=== PATIENT | male | born 1965 | race African-American/Black ===

== ENCOUNTER 2025-05-09 10:00 | Inpatient (IN) | payer MEDICAID ==
[~2025-05-09] VITALS: Ht 182.9 cm; Wt 90.7 kg
[2025-05-09 10:04] VITALS: O2SAT 100
[2025-05-09] MEDS: ONDANSETRON HCL 4MG/2ML INJ IV ONE ×2 (10:41→17:21)
[2025-05-09] MEDS: FAMOTIDINE 20MG/2ML VIAL IV ONE (10:41)
[2025-05-09 10:42] LABS: BASOPHILS % 0.6 % (0.0-2.0); EOSINOPHILS % 4.6 % (0.0-5.0); HEMATOCRIT. 37.3 % (42.0-52.0); HEMOGLOBIN. 12.7 g/dL (14.0-18.0); LYMPHOCYTES % 16.5 % (20.0-50.0); MEAN PLATELET VOLUME 8.6 fl (7.4-10.4); MONOCYTES % 7.6 % (2.0-8.0); NEUTROPHILS % 70.7 % (40.0-76.0); PLATELET 260 x1000/uL (130-400); RED BLOOD CELL COUNT 4.18 mill/uL (4.7-6.1); RED CELL DISTRIBUTION WIDTH 16.1 % (11.6-14.6)
[2025-05-09 11:02] LABS: CREATININE 1.1 mg/dL (0.6-1.3); TROPONIN I HIGH SENSITIVITY 18 ng/L (3.0-53); UREA NITROGEN BLOOD 19 mg/dL (9-23)
[2025-05-09 11:03] LABS: ASPARTATE AMINOTRANSFERASE 107 IU/L (<34)
[2025-05-09 11:04] LABS: BILIRUBIN DIRECT 0.2 mg/dL (<=3.0); BILIRUBIN TOTAL 0.4 mg/dL (0.1-1.0); PROTEIN TOTAL 7.0 g/dL (6.0-8.3)
[2025-05-09] MEDS: LOSARTAN 50 MG TABLET PO ONE (15:50)
[2025-05-09 16:26] LABS: CLARITY URINE CLEAR (CLEAR); COLOR URINE YELLOW (YELLOW); GLUCOSE URINE NEGATIVE (NEGATIVE); KETONES URINE 1+ (NEGATIVE); LEUKOCYTE ESTERASE URINE NEGATIVE (NEGATIVE); NITRITE URINE NEGATIVE (NEGATIVE); OCCULT BLOOD URINE NEGATIVE (NEGATIVE); PH URINE 6.5 (4.5-8.0); PROTEIN URINE 1+ (NEGATIVE); SPECIFIC GRAVITY URINE 1.020 (1.005-1.030); UROBILINOGEN URINE 2.0 E.U./dL (0.2-1.0)
[2025-05-09 16:36] LABS: *AMPHETAMINES SCREEN URINE NEGATIVE (NEGATIVE); *BARBITURATES SCREEN URINE NEGATIVE (NEGATIVE); *BENZODIAZEPINES SCREEN URINE NEGATIVE (NEGATIVE); *COCAINE SCREEN URINE PRESUMPTIVE POSITIVE (NEGATIVE); CANNABINOID URINE SCREEN NEGATIVE (NEGATIVE); ECSTASY MDMA SCREEN URINE NEGATIVE (NEGATIVE); METHADONE URINE SCREEN NEGATIVE (NEGATIVE); OPIATES URINE SCREEN NEGATIVE (NEGATIVE); PHENCYCLIDINE URINE SCREEN NEGATIVE (NEGATIVE)
[2025-05-09 16:46] LABS: BACTERIA URINE NONE SEEN; RBC URINE 0-2 /hpf (0-2); SQUAMOUS EPITHELIAL CELL URINE NONE SEEN /lpf (RARE/1+); WBC URINE 0-2 /hpf (0-2)
[2025-05-09 16:47] LABS: MUCUS URINE TRACE /lpf (NONE/TRACE)
[2025-05-09] MEDS: KETOROLAC 30MG/ML VIAL IV ONE (17:21)
[2025-05-09] MEDS: HYDRALAZINE 20MG/ML VIAL IV ONE (18:20)
[2025-05-09] MEDS ORDERED: IOHEXOL-300 100 ML BOTTLE ONE (20:14)
[2025-05-09] MEDS ORDERED: DEXTROSE 50% WATER 50ML SYRINGE IV PRN (20:15)
[2025-05-09] MEDS: PANTOPRAZOLE SODIUM 40 MG/VIAL IV SCH (20:30)
[2025-05-09] MEDS ORDERED: LABETALOL 5MG/ML 4ML INJ IV SCH (20:30)
[2025-05-09] MEDS: METOCLOPRAMIDE HCL 10MG/2ML VIAL IV ONE (20:59)
[2025-05-09] MEDS: INSULIN LISPRO 100 UNITS/ML SUBCUT SCH (21:00)
[2025-05-09] MEDS: ENOXAPARIN 40MG/0.4ML SYR SUBCUT SCH (21:00)
[2025-05-09] MEDS ORDERED: CHLORDIAZEPOXIDE 25MG CAPSULE PO PRN (21:00)
[2025-05-09] MEDS: BLOOD SUGAR DIAGNOSTIC STRIP TEST SCH (21:00)
[2025-05-09] MEDS ORDERED: DEXT 5%/0.9% NACL 500 ML IV ONE (21:00)
[2025-05-09 23:30] VITALS: BP 175/116; PULSE 89; RESP 20; TEMP 36.5292
[2025-05-09 23:50] VITALS: BP 147/90; PULSE 89; RESP 20; TEMP 36.5; O2SAT 100
[2025-05-10 01:48] LABS: TROPONIN I HIGH SENSITIVITY 14 ng/L (3.0-53)
[2025-05-10 01:49] LABS: ASPARTATE AMINOTRANSFERASE 66 IU/L (<34)
[2025-05-10 04:00] VITALS: BP 153/96; PULSE 78; RESP 20; TEMP 36.7; O2SAT 98
[2025-05-10 07:26] LABS: CREATININE 1.0 mg/dL (0.6-1.3); UREA NITROGEN BLOOD 13 mg/dL (9-23)
[2025-05-10 07:41] LABS: BASOPHILS % 0.4 % (0.0-2.0); EOSINOPHILS % 3.9 % (0.0-5.0); HEMATOCRIT. 36.2 % (42.0-52.0); HEMOGLOBIN. 12.2 g/dL (14.0-18.0); LYMPHOCYTES % 23.9 % (20.0-50.0); MEAN PLATELET VOLUME 9.5 fl (7.4-10.4); MONOCYTES % 7.9 % (2.0-8.0); NEUTROPHILS % 63.9 % (40.0-76.0); PLATELET 260 x1000/uL (130-400); RED BLOOD CELL COUNT 4.05 mill/uL (4.7-6.1); RED CELL DISTRIBUTION WIDTH 16.1 % (11.6-14.6)
[2025-05-10] MEDS: MULTIVITAMINS,THER W-MINERALS TABLET PO SCH (09:00)
[2025-05-10] MEDS ORDERED: THIAMINE HCL 100 MG/1 ML 2ML VIAL IM SCH (09:00)
[2025-05-10] MEDS ORDERED: CLONIDINE 0.1MG TABLET PO PRN (09:00)
[2025-05-10] MEDS: FOLIC ACID 1MG TABLET PO SCH (09:00)
[2025-05-10] MEDS: HYDROCORTISONE 2.5% RECTAL CREAM 28GM PR SCH (09:43)
[2025-05-10 12:00] VITALS: BP 127/74; PULSE 57; RESP 17; TEMP 37; O2SAT 99
[2025-05-10] MEDS: FOLIC ACID 1 MG, THIAMINE HCL 100 MG, MVI, ADULT NO.1 10 ML in DEXTROSE 5% WATER 1,000 ML IV ONE (14:27)
[2025-05-10] MEDS: LORAZEPAM 2MG/ML UD SYRINGE IV PRN (14:47)
[2025-05-10 16:00] VITALS: BP 126/76; PULSE 79; RESP 18; TEMP 35.9; O2SAT 98
[2025-05-10] MEDS ORDERED: VARE1TAB21 PO (16:28)
[2025-05-10] MEDS ORDERED: PROT40 PO (16:59)
[2025-05-10] MEDS ORDERED: LISI2.5T47 PO (16:59)
[2025-05-10] MEDS ORDERED: OLAN-37 PO (16:59)
[2025-05-10] MEDS ORDERED: ONDA4TAB50 PO (16:59)
[2025-05-10] MEDS ORDERED: BENZ1TAB79 MT (16:59)
[2025-05-10] MEDS ORDERED: DIPH50CA42 MT (16:59)
[2025-05-10] MEDS ORDERED: SENN8.8S8 PO (16:59)
[2025-05-10] MEDS ORDERED: ATOR-2 PO (16:59)
[2025-05-10] MEDS ORDERED: CHOL400D7 PO (16:59)
[2025-05-10] MEDS ORDERED: NAPR-1176 PO (16:59)
[2025-05-10] MEDS ORDERED: OMEP40CA20 PO (16:59)
[2025-05-10] MEDS ORDERED: POLY250017 MT (16:59)
[2025-05-10] MEDS ORDERED: TAMS-54 PO (16:59)
[2025-05-10] MEDS ORDERED: TERB250T88 PO (16:59)
[2025-05-10] MEDS ORDERED: PROP80CA59 PO (16:59)
[2025-05-10] MEDS ORDERED: DICL100G58 TP (16:59)
[2025-05-10] MEDS ORDERED: GABA-1180 PO (16:59)
[2025-05-10] MEDS ORDERED: ARIP882S2 IM (16:59)
[2025-05-10] MEDS ORDERED: AMLO10TA80 PO (16:59)
[2025-05-10] MEDS ORDERED: METF-1149 PO (16:59)
[2025-05-10] MEDS ORDERED: MELA5TAB19 PO (16:59)
[2025-05-10] MEDS ORDERED: DICL50TA9 PO (16:59)
[2025-05-10 20:00] VITALS: BP 139/88; PULSE 85; RESP 16; TEMP 36.7; O2SAT 97
[2025-05-11] VITALS: BP 125/80; PULSE 72; RESP 19; TEMP 36.4; O2SAT 97
[2025-05-11 04:00] VITALS: BP 163/85; PULSE 71; RESP 16; TEMP 36.3; O2SAT 95
[2025-05-11] MEDS: ONDANSETRON HCL 4MG/2ML INJ IV PRN (04:16)
[2025-05-11 05:33] LABS: CREATININE 1.0 mg/dL (0.6-1.3)
[2025-05-11 05:34] LABS: LDL CHOLESTEROL 46 mg/dL (5-100); TRIGLYCERIDE 80 mg/dL (0-150); UREA NITROGEN BLOOD 9 mg/dL (9-23)
[2025-05-11 06:32] LABS: BASOPHILS % 0.3 % (0.0-2.0); EOSINOPHILS % 3.6 % (0.0-5.0); HEMATOCRIT. 36.9 % (42.0-52.0); HEMOGLOBIN. 12.5 g/dL (14.0-18.0); LYMPHOCYTES % 30.4 % (20.0-50.0); MEAN PLATELET VOLUME 9.5 fl (7.4-10.4); MONOCYTES % 5.5 % (2.0-8.0); NEUTROPHILS % 60.2 % (40.0-76.0); PLATELET 260 x1000/uL (130-400); RED BLOOD CELL COUNT 4.16 mill/uL (4.7-6.1); RED CELL DISTRIBUTION WIDTH 16.2 % (11.6-14.6)
[2025-05-11 08:00] VITALS: BP 159/99; PULSE 70; RESP 17; TEMP 36.2; O2SAT 99
[2025-05-11] MEDS: POTASSIUM CHLORIDE 20MEQ/PACKET PO SCH (08:15)
[2025-05-11] MEDS ORDERED: GABAPENTIN 300MG CAPSULE PO SCH (08:15)
[2025-05-11] MEDS: FAMOTIDINE 20MG/2ML VIAL IV SCH (09:00)
[2025-05-11] MEDS ORDERED: AMLODIPINE 5MG TABLET PO SCH (09:00)
[2025-05-11] MEDS: THIAMINE HCL 100 MG/1 ML 2ML VIAL IM SCH (09:00)
[2025-05-11] MEDS: NICOTINE 14MG PATCH TD SCH (09:49)
[2025-05-11] MEDS: BENZTROPINE MESYLATE 1MG TABLET PO SCH (09:50)
[2025-05-11] MEDS: FOLIC ACID 1MG TABLET PO SCH (09:51)
[2025-05-11] MEDS: MULTIVITAMINS,THER W-MINERALS TABLET PO SCH (09:51)
[2025-05-11] MEDS: TAMSULOSIN HCL 0.4MG SR CAPSULE PO SCH (09:54)
[2025-05-11] MEDS: AMLODIPINE 10MG TABLET PO SCH (09:54)
[2025-05-11] MEDS: OLANZAPINE 5MG TABLET PO SCH (09:55)
[2025-05-11] MEDS: LISINOPRIL 2.5MG TABLET PO SCH (09:56)
[2025-05-11] MEDS: MAGNESIUM 1 G PREMIX 100 ML IV SCH (10:15)
[2025-05-11] MEDS ORDERED: DOCUSATE SODIUM 250MG CAPSULE PO PRN (11:30)
[2025-05-11] MEDS ORDERED: PANTOPRAZOLE SODIUM 40 MG/VIAL IV SCH (12:00)
[2025-05-11] MEDS ORDERED: THIA100T72 PO (12:49)
[2025-05-11] MEDS ORDERED: HYDR25SU37 RC (12:49)
[2025-05-11] MEDS: THROAT LOZENGES-BENZOCAINE/MENTH/CETYLPYRD CL LOZENGES MM PRN (15:02)
[2025-05-11 15:52] VITALS: BP 136/102; PULSE 109; RESP 18; TEMP 97.3
[2025-05-11 16:00] VITALS: BP 136/102; PULSE 109; RESP 18; TEMP 36.2; O2SAT 98
[2025-05-11] MEDS: ACETAMINOPHEN 650MG/20.3ML UDC PO PRN (16:04)
[2025-05-11] MEDS ORDERED: ATORVASTATIN CALCIUM 40MG TABLET PO SCH (21:00)
[2025-05-11] MEDS ORDERED: MELATONIN 3MG TABLET PO SCH (21:00)
[2025-05-14] MEDS ORDERED: THIAMINE HCL 100MG TABLET PO SCH (09:00)
== END 2025-05-11 16:32 | disposition home or self-care (01) | DRG 816 ==
LOC: ER 10:00 → 7EST 20:34 → EDBEDREQSVC 20:46 → EDBEDREQ 20:46 → EDBEDREQTM 20:46 → EDBEDREQSVC 20:56 → ENRESERV 22:51
PROVIDERS: ADMIT Hospitalist; ATTEND Hospitalist
DX: T40.5X1A Poisoning by cocaine, accidental (unintentional), initial encounter (principal); G92.8 Other toxic encephalopathy; I16.0 Hypertensive urgency; R10.A1 Flank pain, right side; E11.9 Type 2 diabetes mellitus without complications; K64.4 Residual hemorrhoidal skin tags; I10 Essential (primary) hypertension; N40.0 Benign prostatic hyperplasia without lower urinary tract symptoms; F20.9 Schizophrenia, unspecified; F14.929 Cocaine use, unspecified with intoxication, unspecified; R74.8 Abnormal levels of other serum enzymes; K44.9 Diaphragmatic hernia without obstruction or gangrene; I25.2 Old myocardial infarction; Y92.89 Other specified places as the place of occurrence of the external cause
CPT/HCPCS: 36415; 71045; 74177; 80048; 80061; 80076; 80305; 80320; 81003; 82962; 83036; 83735; 83880; 84443; 84450; 84460; 84484; 85025; 93005; 96374; 96375; 96376; 99291; J0360; J1308; J1650; J1885; J2060; J2405; J2470; J2765; J3411; J3475; J3490; J7070; Q9967; G0480